=== PATIENT | female | born 1990 | race Caucasian/White ===

== ENCOUNTER 2016-06-23 20:41 | Emergency (ER) | payer MEDICAID ==
[~2016-06-23] VITALS: Ht 157.5 cm; Wt 75.0 kg
[~2016-06-23 20:41] MED LIST: AMITRIPTYLINE H25 M1 PO; ATARAX50 MG PO; BENADRYL; BIOFLEX PO; BUSPAR10 MG PO; CAMBIA50 MG PO; CEPHALEXIN500 M1 PO; CLEOCIN HCL300 MG PO; DEPO-PROVER400 MG/ML IM; DOXYCYCLINE 10100 MG PO; EFFEXOR 3737.5 MG/TA PO; IMITREX 6M6 MG/0.5 M SQ; IMITREX ST6 MG/0.5 M SC; LORTAB 5/500 501 TAB PO; MAGNESIUM500 MG PO; NAPROSYN500 MG PO; NORCO 325 MG-51 TAB PO; NORCO 325 MG-7.1 TAB PO; PHENERGAN 25 TA25 MG PO; PRENATAL1 TA1 PO; PRILOSEC 10MG10 MG PO; PRILOSEC 20MG20 MG PO; SINGULAIR 110 MG/TAB PO; TOPAMAX 100MG100 M1 PO; TOPAMAX50 MG PO; TORADOL 10MG TA10 MG PO; VALIUM 5MG T5 MG/TAB PO; VENTOLIN0.09 MG IH; ZANAFLEX 4MG TAB4 MG PO; [UNRECOGNIZED DRUG - OTHER]
[2016-06-23 20:45] VITALS: BP 125/99; TEMP 98.3
[2016-06-23 22:25] VITALS: PULSE 75
== END 2016-06-23 22:25 | disposition home or self-care (01) ==
LOC: COL.ER 20:41
DX: G43.909 Migraine, unspecified, not intractable, without status migrainosus (principal)
CPT/HCPCS: J0595; J2550

== ENCOUNTER 2016-09-22 18:38 | Emergency (ER) | payer MEDICAID ==
[~2016-09-22] VITALS: Ht 157.5 cm; Wt 74.5 kg
[2016-09-22 18:43] VITALS: BP 120/76; TEMP 98.5
[2016-09-22] MEDS ORDERED: DOXYCYCLINE 10100 MG PO (21:34)
[2016-09-22 22:14] VITALS: PULSE 111
== END 2016-09-22 22:14 | disposition home or self-care (01) ==
LOC: COL.ER 18:38
DX: H60.391 Other infective otitis externa, right ear (principal); J45.909 Unspecified asthma, uncomplicated; F41.9 Anxiety disorder, unspecified; F43.10 Post-traumatic stress disorder, unspecified; G43.909 Migraine, unspecified, not intractable, without status migrainosus; R59.0 Localized enlarged lymph nodes; F17.210 Nicotine dependence, cigarettes, uncomplicated

== ENCOUNTER 2017-12-29 23:13 | Emergency (ER) | payer MEDICAID ==
[~2017-12-29] VITALS: Ht 157.5 cm; Wt 59.1 kg
[2017-12-29 23:27] VITALS: TEMP 98.4
[2017-12-30] MEDS ORDERED: CLEOCIN HCL300 MG PO (01:03)
[2017-12-30 01:10] VITALS: BP 106/83; PULSE 98
== END 2017-12-30 01:16 | disposition home or self-care (01) ==
LOC: COL.ER 23:13
DX: L03.113 Cellulitis of right upper limb (principal); J45.909 Unspecified asthma, uncomplicated; F41.9 Anxiety disorder, unspecified; G43.909 Migraine, unspecified, not intractable, without status migrainosus; F43.10 Post-traumatic stress disorder, unspecified; F17.210 Nicotine dependence, cigarettes, uncomplicated

== ENCOUNTER 2018-12-12 20:08 | Emergency (ER) | payer MEDICAID ==
[~2018-12-12] VITALS: Ht 157.5 cm; Wt 79.5 kg
[2018-12-12 20:16] VITALS: BP 130/70; TEMP 99.3
[2018-12-12] MEDS ORDERED: ATARAX50 MG PO (20:32)
[2018-12-12] MEDS ORDERED: PRIL40 PO (20:33)
[2018-12-12] MEDS ORDERED: SINGULAIR 110 MG/TAB PO (20:34)
[2018-12-12] MEDS ORDERED: ALAVERT10 M1 PO (20:34)
[2018-12-12] MEDS ORDERED: DOXYCYCLINE HY100 MG PO (20:48)
[2018-12-12 21:15] VITALS: PULSE 114
== END 2018-12-12 21:15 | disposition home or self-care (01) ==
LOC: COL.ER 20:08
DX: L02.416 Cutaneous abscess of left lower limb (principal); F43.10 Post-traumatic stress disorder, unspecified; G43.909 Migraine, unspecified, not intractable, without status migrainosus; F17.210 Nicotine dependence, cigarettes, uncomplicated; Z90.710 Acquired absence of both cervix and uterus; Z98.890 Other specified postprocedural states

== ENCOUNTER 2018-12-26 20:36 | Emergency (ER) | payer MEDICAID ==
[~2018-12-26] VITALS: Ht 157.5 cm; Wt 81.8 kg
[~2018-12-26 20:36] MED LIST changes: +ALAVERT10 M1 PO; +DOXYCYCLINE HY100 MG PO; +PRIL40 PO
[2018-12-26 20:40] VITALS: BP 124/89; TEMP 97.8
[2018-12-26] MEDS ORDERED: PHENERGAN 25 TA25 MG PO (21:52)
[2018-12-26 21:56] VITALS: PULSE 84
== END 2018-12-26 22:00 | disposition home or self-care (01) ==
LOC: COL.ER 20:36
DX: G43.909 Migraine, unspecified, not intractable, without status migrainosus (principal); Z90.710 Acquired absence of both cervix and uterus
CPT/HCPCS: J1885; J2550

== ENCOUNTER 2019-01-16 14:56 | Emergency (ER) | payer MEDICAID ==
[~2019-01-16] VITALS: Ht 157.5 cm; Wt 79.5 kg
[2019-01-16 16:19] VITALS: BP 136/76; PULSE 78; TEMP 98.4
== END 2019-01-16 16:19 | disposition home or self-care (01) ==
LOC: COL.ER 14:56
DX: G43.909 Migraine, unspecified, not intractable, without status migrainosus (principal); F43.10 Post-traumatic stress disorder, unspecified; F41.9 Anxiety disorder, unspecified; Z90.710 Acquired absence of both cervix and uterus; Z88.2 Allergy status to sulfonamides
CPT/HCPCS: J1885; J2550

== ENCOUNTER 2019-05-26 16:02 | Emergency (ER) | payer SELFPAY ==
[~2019-05-26] VITALS: Ht 157.5 cm; Wt 77.3 kg
[2019-05-26 16:12] VITALS: BP 123/70; TEMP 98.5
[2019-05-26] MEDS ORDERED: FLEXERIL 1010 MG/TAB PO (17:12)
[2019-05-26 17:40] VITALS: PULSE 77
== END 2019-05-26 17:40 | disposition home or self-care (01) ==
LOC: COL.ER 16:02
DX: M54.42 Lumbago with sciatica, left side (principal); G43.909 Migraine, unspecified, not intractable, without status migrainosus; F41.9 Anxiety disorder, unspecified; F17.210 Nicotine dependence, cigarettes, uncomplicated; Z88.2 Allergy status to sulfonamides; Z88.5 Allergy status to narcotic agent; W00.0XXA Fall on same level due to ice and snow, initial encounter
CPT/HCPCS: J1885; J2360

== ENCOUNTER 2019-10-31 11:52 | Emergency (ER) | payer SELFPAY ==
[~2019-10-31] VITALS: Ht 157.5 cm; Wt 90.9 kg
[~2019-10-31 11:52] MED LIST changes: +FLEXERIL 1010 MG/TAB PO
[2019-10-31 11:56] VITALS: BP 105/73; TEMP 97.6
[2019-10-31] MEDS ORDERED: AMITRIPTYLINE H75 M1 PO (12:04)
[2019-10-31] MEDS ORDERED: PRILOTC PO (12:07)
[2019-10-31] MEDS ORDERED: EFFEXOR-XR150 MG PO (12:09)
[2019-10-31] MEDS ORDERED: CLARITIN 1010 MG/TAB PO (12:12)
[2019-10-31 13:23] VITALS: PULSE 85
== END 2019-10-31 13:23 | disposition home or self-care (01) ==
LOC: COL.ER 11:52
DX: G43.909 Migraine, unspecified, not intractable, without status migrainosus (principal); F32.9 Major depressive disorder, single episode, unspecified; F41.9 Anxiety disorder, unspecified; F43.10 Post-traumatic stress disorder, unspecified; F17.210 Nicotine dependence, cigarettes, uncomplicated; Z88.2 Allergy status to sulfonamides; Z88.8 Allergy status to other drugs, medicaments and biological substances; Z88.6 Allergy status to analgesic agent; Z90.710 Acquired absence of both cervix and uterus
CPT/HCPCS: J1885; J2550

== ENCOUNTER 2020-08-08 17:27 | Emergency (ER) | payer SELFPAY ==
[~2020-08-08] VITALS: Ht 157.5 cm; Wt 90.9 kg
[~2020-08-08 17:27] MED LIST changes: +AMITRIPTYLINE H75 M1 PO; +CLARITIN 1010 MG/TAB PO; +EFFEXOR-XR150 MG PO; +PRILOTC PO
[2020-08-08 17:30] VITALS: BP 125/74; TEMP 97.4
[2020-08-08 19:05] VITALS: PULSE 90
== END 2020-08-08 19:06 | disposition home or self-care (01) ==
LOC: COL.ER 17:27
DX: R51.9 Headache, unspecified (principal); H53.141 Visual discomfort, right eye; F17.210 Nicotine dependence, cigarettes, uncomplicated; Z88.2 Allergy status to sulfonamides; Z88.5 Allergy status to narcotic agent; Z88.8 Allergy status to other drugs, medicaments and biological substances; Z88.6 Allergy status to analgesic agent
CPT/HCPCS: J1885; J2550

== ENCOUNTER 2020-09-18 17:02 | Emergency (ER) | payer SELFPAY ==
[~2020-09-18] VITALS: Ht 157.5 cm; Wt 90.9 kg
[2020-09-18 17:40] LABS: COLLECTION METHOD CLEAN CATCH
[2020-09-18 18:08] LABS: MUCOUS Present /lpf; PH 5 (5-8); SQUAMOUS EPITHELIAL 0-2 /hpf; URINE APPEARANCE Hazy; URINE BACTERIA Rare /hpf; URINE BILIRUBIN Negative (NEGATIVE); URINE BLOOD Negative (NEGATIVE); URINE COLOR Yellow; URINE GLUCOSE Negative (NEGATIVE); URINE KETONE Negative (NEGATIVE); URINE LEUKOCYTE ESTERASE Negative (NEGATIVE); URINE NITRATE Negative (NEGATIVE); URINE PROTEIN(semi-quant) Negative (NEGATIVE); URINE RBC 0-2 /hpf
[2020-09-18 18:22] LABS: BASO % 0.4 % (0.0-2.0); EOS # 0.2 (0.0-0.7); EOS % 1.7 % (0-4.0); GRAN # 6.9 (1.4-6.5); GRAN % 69.1 % (42.2-75.2); HEMATOCRIT 38.5 % (37.0-47.0); HEMOGLOBIN 13.1 g/dl (12.5-16.0); LYMPH # 2.1 (1.2-3.4); LYMPH % 21.2 % (20.0-51.0); MEAN CELL VOLUME 89 fl (80.0-100.0); MEAN CORPUSCULAR HEMOGLOBIN 30 pg (27.0-31.0); MEAN CORPUSCULAR HGB CONC 34 g/dl (33.0-37.0); MEAN PLATELET VOLUME 9.7 fl (7.4-10.4); MONO # 0.7 (0.1-0.6); MONO % 7.3 % (1.7-9.3); PLATELET COUNT 349 K/mm3 (130-400); RED BLOOD COUNT 4.33 M/mm3 (4.10-5.30); REDCELL DISTRIBUTION WIDTH-CV 12.3 % (11.5-14.5)
[2020-09-18 18:44] LABS: C-REACTIVE PROTEIN 0.5 mg/dL (0.0-0.9)
[2020-09-18 18:51] LABS: ALBUMIN 4.3 gm/dL (3.5-5.0); BILIRUBIN,TOTAL 0.3 mg/dL (0.0-1.0); CALCIUM 9.4 mg/dL (8.4-10.2); CREATININE, serum 0.87 (0.52-1.25); POTASSIUM 3.8 mmol/L (3.4-5.0); TOTAL PROTEIN 7.8 gm/dL (6.4-8.2)
[2020-09-18 19:19] VITALS: BP 111/68; PULSE 76; TEMP 98.4
== END 2020-09-18 19:19 | disposition home or self-care (01) ==
LOC: COL.ER 17:02
PROVIDERS: Nurse Practitioner Primary Care
DX: M54.6 Pain in thoracic spine (principal); F17.210 Nicotine dependence, cigarettes, uncomplicated; Z90.710 Acquired absence of both cervix and uterus; Z88.6 Allergy status to analgesic agent; Z87.442 Personal history of urinary calculi
CPT/HCPCS: J1885; J2405

== ENCOUNTER 2020-11-23 18:10 | Emergency (ER) | payer SELFPAY ==
[~2020-11-23] VITALS: Ht 157.5 cm; Wt 131.8 kg
[2020-11-23 18:17] VITALS: TEMP 97.2
[2020-11-23 19:12] VITALS: BP 117/70; PULSE 76
== END 2020-11-23 19:12 | disposition home or self-care (01) ==
LOC: COL.ER 18:10
DX: G43.909 Migraine, unspecified, not intractable, without status migrainosus (principal); K21.9 Gastro-esophageal reflux disease without esophagitis; F32.9 Major depressive disorder, single episode, unspecified; Z88.6 Allergy status to analgesic agent; Z79.899 Other long term (current) drug therapy
CPT/HCPCS: J0780; J1100; J1200; J1885

== ENCOUNTER 2021-01-14 06:42 | Emergency (ER) | payer SELFPAY ==
[~2021-01-14] VITALS: Ht 157.5 cm; Wt 86.4 kg
[2021-01-14 06:53] VITALS: BP 127/82; PULSE 89; TEMP 98.3
== END 2021-01-14 08:30 | disposition home or self-care (01) ==
LOC: COL.ER 06:42
DX: G43.909 Migraine, unspecified, not intractable, without status migrainosus (principal); F32.A Depression, unspecified; K21.9 Gastro-esophageal reflux disease without esophagitis; F41.9 Anxiety disorder, unspecified; Z79.899 Other long term (current) drug therapy
CPT/HCPCS: J1885; J2550

== ENCOUNTER 2021-02-24 18:49 | Emergency (ER) | payer SELFPAY ==
[~2021-02-24] VITALS: Ht 157.5 cm; Wt 97.6 kg
[2021-02-24 20:14] LABS: TRICYCLIC ANTIDEPRESS URINE POSITIVE
[2021-02-24 21:08] VITALS: BP 119/89; PULSE 88; TEMP 98.5
== END 2021-02-24 21:08 | disposition home or self-care (01) ==
LOC: COL.ER 18:49
PROVIDERS: Student in an Organized Health Care Education/Training Program
DX: Z02.83 Encounter for blood-alcohol and blood-drug test (principal); G43.909 Migraine, unspecified, not intractable, without status migrainosus; F32.9 Major depressive disorder, single episode, unspecified; F41.9 Anxiety disorder, unspecified; F17.210 Nicotine dependence, cigarettes, uncomplicated; Z88.6 Allergy status to analgesic agent; Z79.899 Other long term (current) drug therapy

== ENCOUNTER 2021-07-21 14:39 | Emergency (ER) | payer OTHER ==
[~2021-07-21] VITALS: Ht 157.5 cm; Wt 80.0 kg
[2021-07-21 18:41] VITALS: BP 121/67; PULSE 100; TEMP 98.1
== END 2021-07-21 17:50 | disposition home or self-care (01) ==
LOC: COL.ER 14:39
DX: M54.2 Cervicalgia (principal); M25.512 Pain in left shoulder; M54.50 Low back pain, unspecified; R07.89 Other chest pain; R51.9 Headache, unspecified; V49.50XA Passenger injured in collision with unspecified motor vehicles in traffic accident, initial encounter; Y92.410 Unspecified street and highway as the place of occurrence of the external cause
CPT/HCPCS: Q9967

== ENCOUNTER 2021-11-11 10:57 | Emergency (ER) | payer SELFPAY ==
[~2021-11-11] VITALS: Ht 157.5 cm; Wt 84.1 kg
[2021-11-11 11:17] VITALS: TEMP 98.4
[2021-11-11] MEDS ORDERED: NORCO 325 MG-51 TAB PO (12:06)
[2021-11-11 12:12] VITALS: BP 105/68; PULSE 96
== END 2021-11-11 12:13 | disposition home or self-care (01) ==
LOC: COL.ER 10:57
DX: M54.50 Low back pain, unspecified (principal); Z88.5 Allergy status to narcotic agent

== ENCOUNTER 2022-07-10 11:56 | Emergency (ER) | payer SELFPAY ==
[~2022-07-10] VITALS: Ht 157.5 cm; Wt 84.1 kg
[2022-07-10] MEDS ORDERED: PROZAC 10MG10 MG PO (12:16)
[2022-07-10 13:53] VITALS: BP 123/89; PULSE 80; TEMP 98.1
== END 2022-07-10 13:54 | disposition home or self-care (01) ==
LOC: COL.ER 11:56
DX: G43.909 Migraine, unspecified, not intractable, without status migrainosus (principal); F17.210 Nicotine dependence, cigarettes, uncomplicated; F17.290 Nicotine dependence, other tobacco product, uncomplicated; Z79.899 Other long term (current) drug therapy
CPT/HCPCS: J1885